=== PATIENT | female | born 1965 | race American Indian/Alaskan Native ===

== ENCOUNTER 2017-11-07 15:18 | Outpatient (CLI) | payer OTHER ==
--- NOTE | 2017-11-07 22:49 | XRay Report ---
FINAL REPORT PROCEDURE: Left foot. TECHNIQUE: Three views. HISTORY: LEFT FOOT PAIN COMPARISON: No prior studies are available for comparison. FINDINGS: The bones appear intact without fracture or dislocation. The joint spaces appear normal. The soft tissues are unremarkable. IMPRESSION: No significant abnormality.
== END 2017-11-07 15:19 | disposition home or self-care (01) ==
LOC: SPVIMAG 15:18
PROVIDERS: ATTEND Family Medicine
DX: M79.672 Pain in left foot (principal); I10 Essential (primary) hypertension; E78.00 Pure hypercholesterolemia, unspecified